=== PATIENT | male | born 1960 | race Caucasian/White ===

== ENCOUNTER 2024-05-12 03:00 | Emergency (ER) | payer MEDICAID ==
[~2024-05-12] VITALS: Ht 170.2 cm; Wt 99.8 kg
[2024-05-12 04:10] VITALS: BP 135/56; TEMP 98.8
[2024-05-12 04:30] VITALS: O2SAT 98
[2024-05-12] MEDS ORDERED: ERYT3.5O9 EACHEYE (04:55)
== END 2024-05-12 05:07 | disposition home or self-care (01) ==
LOC: ER 03:10
DX: H00.014 Hordeolum externum left upper eyelid (principal)